=== PATIENT | female | born 2000 | race American Indian/Alaskan Native ===

== ENCOUNTER 2019-08-31 15:31 | Emergency (ER) | payer MEDICAID ==
--- NOTE | 2019-08-31 16:31 | Emergency Department Report ---
Blank Doc - Documentation Documentation: 18-year-old female that presents with urinary dysuria and flank pain. This initial assessment/diagnostic orders/clinical plan/treatment(s) is/are subject to change based on patient's health status, clinical progression and re- assessment by fellow clinical providers in the ED. Further treatment and workup at subsequent clinical providers discretion. Patient/guardians urged not to elope from the ED as their condition may be serious if not clinically assessed and managed. Initial orders include: 1- Patient sent to [facility] for further evaluation and treatment 2- UA
[2019-08-31] MEDS ORDERED: ONDANSETRON 4 MG/2 ML INJ IV ONE (17:16)
[2019-08-31] MEDS ORDERED: cefTRIAXone/NS 2 GM/100 ML 2 GM/100 ML BAG IV ONE (17:16)
[2019-08-31] MEDS ORDERED: HYDROcodone/ACETAMINOPHEN 5-325 MG TAB PO ONE (17:16)
[2019-08-31 17:18] LABS: Bilirubin,Urine NEG (Negative); Blood,Urine SM (Negative); Color,Urine Straw (Yellow); Mucus,Urine FEW /HPF; Protein,Urine <15 mg/dL mg/dL (Negative); Urobilinogen,Urine < 2.0 mg/dL (<2.0)
[2019-08-31 17:22] LABS: HCG Qualitative,Urine Negative (Negative)
[2019-08-31] MEDS ORDERED: diphenhydrAMINE 50 MG/ML VIAL ONE (18:21)
[2019-08-31] MEDS ORDERED: EPINEPHrine RACEMIC 2.25% 0.5ML NEBU IH ONE ×2 (18:21→18:24)
[2019-08-31] MEDS ORDERED: methylPREDNISolone Sod Succinate 125 MG/2 ML INJ ONE (18:21)
[2019-08-31] MEDS ORDERED: SODIUM CHLORIDE 0.9% 1000 ML 1,000 ML IV ONE (18:23)
[2019-08-31] MEDS ORDERED: AZITHROMYCIN 1 GM ORAL PWDR PACKET PO ONE (18:23)
--- NOTE | 2019-08-31 18:28 | Emergency Department Report ---
HPI - General Chief Complaint: Urogenital-Female Time Seen by Provider: 08/31/19 16:31 - HPI HPI: Room 45 The patient is a 18-year-old female presenting with chief complaint of right flank pain. Patient states she's had signs and symptoms of a UTI which included right flank pain 2 days. Patient states her urine has had a strong order for 2 days as well. Patient admits to dysuria but denies hematuria or vaginal discharge. Patient denies nausea vomiting. Patient admits to a subjective fever Location: [See above] Duration: [See above] Quality: [See above] Severity: [See above] Timing: [See above] Context: [See above] Modifying factors: [See above] Associated signs and symptoms: [see above] ED Past Medical Hx - Past Medical History Previous Medical History?: No - Surgical History Past Surgical History?: Yes Additional Surgical History: - Family History Family history: no significant - Social History Smoking Status: Never Smoker Substance Use Type: None (denies illicit drug use) - Medications Home Medications: Home Medications Medication Instructions Recorded Confirmed Last Taken Type HYDROcodone/APAP 5-325 [[place] 1 - 2 each PO Q6HR PRN #10 tablet 08/31/19 Unknown Rx 5/325] Ibuprofen [Motrin 800 MG tab] 800 mg PO Q8HR PRN #20 tablet 08/31/19 Unknown Rx levoFLOXacin [Levaquin TAB] 500 mg PO QDAY #10 tablet 08/31/19 Unknown Rx ED Review of Systems ROS: Stated complaint: POSS UTI Other details as noted in HPI Constitutional: fever (subjective) Eyes: denies: eye pain ENT: denies: throat pain Respiratory: no symptoms reported Cardiovascular: denies: chest pain Endocrine: no symptoms reported Gastrointestinal: denies: nausea, vomiting Genitourinary: dysuria. denies: hematuria, discharge Musculoskeletal: back pain Neurological: denies: headache Physical Exam - Physical Exam Vital Signs: Vital Signs 08/31/19 08/31/19 16:34 17:44 Temperature 99.4 F Pulse Rate 132 H Respiratory 18 18 Rate Blood Pressure 140/79 O2 Sat by Pulse 99 Oximetry Physical Exam: GENERAL: The patient is well-developed well-nourished female sitting on stretcher not appearing to be in acute distress. [] HEENT: Normocephalic. Atraumatic. Extraocular motions are intact. Patient has moist mucous membranes. NECK: Supple. Trachea midline CHEST/LUNGS: Faint expiratory wheezing. There is no respiratory distress noted. HEART/CARDIOVASCULAR: Regular. There is no tachycardia. There is no gallop rub or murmur. ABDOMEN: Abdomen is soft, nontender. Patient has normal bowel sounds. There is no abdominal distention. SKIN: There is no rash. There is no edema. There is no diaphoresis. NEURO: The patient is awake, alert, and oriented. The patient is cooperative. The patient has normal speech MUSCULOSKELETAL: There is right CVA tenderness. There is no evidence of acute injury. ED Course Vital Signs 08/31/19 08/31/19 16:34 17:44 Temperature 99.4 F Pulse Rate 132 H Respiratory 18 18 Rate Blood Pressure 140/79 O2 Sat by Pulse 99 Oximetry - Reevaluation(s) Reevaluation #1: 08/31/19 18:28 Informed by nursing the patient has began wheezing after administration of Rocephin ordered by previous physician. Patient to be given racemic epinephrine, Solu-Medrol and Benadryl ED Medical Decision Making - Radiology Data Radiology results: report reviewed (CT abdomen and pelvis), image reviewed (CT abdomen and pelvis) [facility] [address] [place] [address] Cat Scan Report Signed Patient: REGAN BABIN MR#: [id number] : 2000 Acct:[id number] Age/Sex: 18 / F ADM Date: 08/31/19 Loc: ED Attending Dr: Ordering Physician: JACQUELINE ALICEA MD Date of Service: 08/31/19 Procedure(s): CT abdomen pelvis wo con Accession Number(s): [id number] cc: JACQUELINE ALICEA MD CT abdomen pelvis wo con INDICATION: right flank pain, fever. TECHNIQUE: All CT scans at this location are performed using the following dose modulation technique: Automated exposure control. CONTRAST: None. COMPARISON: None available. CT ABDOMEN: Evaluation of the parenchymal organs demonstrates enlargement of the right kidney relative the left. A low density area at the lower pole laterally measuring 1.8 cm (series 2, image 80) is not a completely simple cyst. Mild inflammation is seen adjacent to the right kidney. The bowel is not dilated or thickened. CT PELVIS: Negative for distal ureteral stone, pelvic fluid collection or inflammation. The appendix is normal. IMPRESSION: 1. Swollen right kidney with adjacent inflammation. Infection and recently passed stone are the most likely etiologies. 2. Complex cyst versus abscess right kidney. Multiphase contrast-enhanced CT could be performed for more complete evaluation as clinically indicated. Signer Name: Biju Licona MD Signed: 08/31/2019 8:08 PM Workstation Name: [id number] Transcribed By: ES Dictated By: Biju Licona MD Electronically Authenticated By: Biju Licona MD Signed Date/Time: 08/31/192007 DD/ 02 TD/TT: - Differential Diagnosis UTI, renal colic, allergic reaction Critical care attestation.: If time is entered above; I have spent that time in minutes in the direct care of this critically ill patient, excluding procedure time. ED Disposition Clinical Impression: Right flank pain, Dysuria Disposition: - TO HOME OR SELFCARE Is pt being admited?: No Does the pt Need Aspirin: No Condition: Stable Instructions: Flank Pain (ED) Additional Instructions: Return to the emergency department should you develop worsening symptoms, inability to tolerate food or liquids, high fever or any other concerns Prescriptions: levoFLOXacin [Levaquin TAB] 500 mg PO QDAY #10 tablet Ibuprofen [Motrin 800 MG tab] 800 mg PO Q8HR PRN #20 tablet PRN Reason: Pain, Moderate (4-6) HYDROcodone/APAP 5-325 [[place] 5/325] 1 - 2 each PO Q6HR PRN #10 tablet PRN Reason: Pain Referrals: VAMSHI BETH MD [Staff Physician] - NAK[place] (Dr. Beth is a urologist. Please follow-up with him for further evaluation of your right kidney and possible cyst) SHITAL FARMER MD [Staff Physician] - 3-5 Days (Dr Farmer is a primary physician. Please follow-up with him to be established as a patient) Time of Disposition: 20:56
[2019-08-31] MEDS ORDERED: methylPREDNISolone Sod Succinate 125 MG/2 ML INJ IV ONE (18:34)
[2019-08-31] MEDS ORDERED: diphenhydrAMINE 50 MG/ML VIAL IV ONE (18:34)
--- NOTE | 2019-08-31 20:12 | Cat Scan Report ---
CT abdomen pelvis wo con INDICATION: right flank pain, fever. TECHNIQUE: All CT scans at this location are performed using the following dose modulation technique: Automated exposure control. CONTRAST: None. COMPARISON: None available. CT ABDOMEN: Evaluation of the parenchymal organs demonstrates enlargement of the right kidney relativ e the left. A low density area at the lower pole laterally measuring 1.8 cm (series 2, image 80) is n ot a completely simple cyst. Mild inflammation is seen adjacent to the right kidney. The bowel is not dilated or thickened. CT PELVIS: Negative for distal ureteral stone, pelvic fluid collection or inflammation. The appendix is normal. IMPRESSION: 1. Swollen right kidney with adjacent inflammation. Infection and recently passed stone are the most likely etiologies. 2. Complex cyst versus abscess right kidney. Multiphase contrast-enhanced CT could be performed for m ore complete evaluation as clinically indicated. Signer Name: Biju Licona MD Signed: 08/31/2019 8:08 PM Workstation Name: [id number]
[2019-08-31 21:11] VITALS: BP 118/88
== END 2019-08-31 21:16 | disposition home or self-care (01) ==
LOC: ED 15:31
DX: R10.9 Unspecified abdominal pain (principal); R30.0 Dysuria; Z98.890 Other specified postprocedural states; Z79.1 Long term (current) use of non-steroidal anti-inflammatories (NSAID); Z79.899 Other long term (current) drug therapy; Z91.013 Allergy to seafood; Z88.8 Allergy status to other drugs, medicaments and biological substances
CPT/HCPCS: 74176; 81001; 81025; 94640; 96365; 96375; 99284; J0696; J1200; J2405; J2930; J7030

== ENCOUNTER 2019-10-21 20:38 | Emergency (ER) | payer SELFPAY ==
[2019-10-21 20:58] VITALS: BP 129/87
--- NOTE | 2019-10-21 22:11 | Emergency Department Report ---
Blank Doc - Documentation Documentation: 18-year-old female that presents with right labia abscess. This initial assessment/diagnostic orders/clinical plan/treatment(s) is/are subject to change based on patient's health status, clinical progression and re- assessment by fellow clinical providers in the ED. Further treatment and workup at subsequent clinical providers discretion. Patient/guardians urged not to elope from the ED as their condition may be serious if not clinically assessed and managed. Initial orders include: 1- Patient sent to [facility] for further evaluation and treatment
[2019-10-21] MEDS: ONDANSETRON 4 MG ODT TAB PO ONE (23:57)
[2019-10-21] MEDS: SULFAMETHOXAZOLE/TRIMETHOPRIM 800/160MG DS TAB PO ONE (23:57)
[2019-10-21] MEDS: oxyCODONE /ACETAMINOPHEN 5-325MG TAB PO ONE (23:57)
[2019-10-21] MEDS: LIDOCAINE-MPF (1%) 10 MG/1 ML VIAL 5 ML INFILTRATI ONE (23:58)
--- NOTE | 2019-10-22 02:31 | Emergency Department Report ---
ED General Adult HPI - General Chief complaint: Urogenital-Female Stated complaint: VAGINAL PAIN Time Seen by Provider: 10/21/19 22:11 Source: patient Mode of arrival: Ambulatory Limitations: No Limitations - History of Present Illness Initial comments: Patient is a 18-year-old -Turkish female with no past medical history presents to the ED with complaint of acute onset persistent painful swollen mildly erythematous fluctuant maculopapular rash on right inguinal area but has spread to the right labia majora for the last 2 days. Patient states that in the last 12 hours the pain and swelling have worsened such that she is unable to walk because of pain. Patient denies fever, chills, nausea, vomiting, dizziness, headache, chest pain, shortness of breath, abdominal pain, vaginal discharge, dysuria, vaginal bleeding or diarrhea. MD Complaint: right inguinal swollen painful rash -: Sudden, days(s) (2) Location: genitals (right inguinal pain) Radiation: non-radiation Severity scale (0 -10): 10 Quality: aching, sharp Improves with: none Worsens with: movement Associated Symptoms: denies other symptoms, loss of appetite, rash (swollen painful erythematous maculopapular fluctuant rash on right inguinal area). denies: confusion, chest pain, cough, diaphoresis, fever/chills, headaches, malaise, nausea/vomiting - Related Data Previous Rx's Medication Instructions Recorded Last Taken Type HYDROcodone/APAP 5-325 [[place] 1 - 2 each PO Q6HR PRN #10 tablet 08/31/19 Unknown Rx 5/325] Ibuprofen [Motrin 800 MG tab] 800 mg PO Q8HR PRN #20 tablet 08/31/19 Unknown Rx levoFLOXacin [Levaquin TAB] 500 mg PO QDAY #10 tablet 08/31/19 Unknown Rx Acetaminophen/Codeine [Tylenol 1 tab PO Q6H PRN #12 tab 10/22/19 Unknown Rx /Codeine # 3 tab] Clindamycin [Clindamycin CAP] 300 mg PO Q8HR #60 capsule 10/22/19 Unknown Rx Ibuprofen [Motrin] 600 mg PO Q8H PRN #24 tablet 10/22/19 Unknown Rx Ondansetron [Zofran Odt] 4 mg PO Q6HR PRN #15 tab.rapdis 10/22/19 Unknown Rx Sulfamethoxazole/Trimethoprim 1 each PO Q12H #20 tablet 10/22/19 Unknown Rx [Bactrim DS TAB] Allergies Allergy/AdvReac Type Severity Reaction Status Date / Time ceftriaxone [From Rocephin] Allergy Shortness Verified 08/31/19 21:01 of Breath shellfish derived AdvReac Angioedema Verified 08/31/19 18:21 ED Review of Systems ROS: Stated complaint: VAGINAL PAIN Other details as noted in HPI Constitutional: denies: chills, fever Eyes: denies: eye pain, eye discharge, vision change ENT: denies: ear pain, throat pain Respiratory: denies: cough, shortness of breath, wheezing Cardiovascular: denies: chest pain, palpitations Endocrine: no symptoms reported Gastrointestinal: denies: abdominal pain, nausea, diarrhea Genitourinary: denies: urgency, dysuria, discharge Musculoskeletal: denies: back pain, joint swelling, arthralgia Skin: rash (swollen, painful erythematous fluctuant rash), change in color. denies: lesions Neurological: denies: headache, weakness, paresthesias Psychiatric: denies: anxiety, depression Hematological/Lymphatic: denies: easy bleeding, easy bruising ED Past Medical Hx - Past Medical History Hx Diabetes: Yes - Surgical History Additional Surgical History: - Social History Smoking Status: Current Every Day Smoker - Medications Home Medications: Home Medications Medication Instructions Recorded Confirmed Last Taken Type HYDROcodone/APAP 5-325 [[place] 1 - 2 each PO Q6HR PRN #10 tablet 08/31/19 Unknown Rx 5/325] Ibuprofen [Motrin 800 MG tab] 800 mg PO Q8HR PRN #20 tablet 08/31/19 Unknown Rx levoFLOXacin [Levaquin TAB] 500 mg PO QDAY #10 tablet 08/31/19 Unknown Rx Acetaminophen/Codeine [Tylenol 1 tab PO Q6H PRN #12 tab 10/22/19 Unknown Rx /Codeine # 3 tab] Clindamycin [Clindamycin CAP] 300 mg PO Q8HR #60 capsule 10/22/19 Unknown Rx Ibuprofen [Motrin] 600 mg PO Q8H PRN #24 tablet 10/22/19 Unknown Rx Ondansetron [Zofran Odt] 4 mg PO Q6HR PRN #15 tab.rapdis 10/22/19 Unknown Rx Sulfamethoxazole/Trimethoprim 1 each PO Q12H #20 tablet 10/22/19 Unknown Rx [Bactrim DS TAB] ED Physical Exam - General Limitations: No Limitations General appearance: alert, in no apparent distress - Head Head exam: Present: atraumatic, normocephalic, normal inspection - Eye Eye exam: Present: normal appearance, PERRL, EOMI Pupils: Present: normal accommodation - ENT ENT exam: Present: normal exam, normal orophraynx, mucous membranes moist, TM's normal bilaterally, normal external ear exam - Neck Neck exam: Present: normal inspection, full ROM. Absent: tenderness, lymphadenopathy - Respiratory Respiratory exam: Present: normal lung sounds bilaterally. Absent: respiratory distress, wheezes, chest wall tenderness, accessory muscle use, decreased breath sounds, prolonged expiratory - Cardiovascular Cardiovascular Exam: Present: regular rate, normal rhythm, normal heart sounds. Absent: systolic murmur, diastolic murmur, rubs, gallop - GI/Abdominal GI/Abdominal exam: Present: soft, normal bowel sounds. Absent: tenderness, guarding - External exam: Present: other (erythematous fluctuant severely tender maculopapular rash on right labium majora) Bi-manual exam: Present: other (Female RN present as special delivery messenger;) - Extremities Exam Extremities exam: Present: normal inspection, full ROM, normal capillary refill - Back Exam Back exam: Present: normal inspection, full ROM. Absent: tenderness, muscle spasm, paraspinal tenderness, vertebral tenderness - Neurological Exam Neurological exam: Present: alert, oriented X3, CN II-XII intact, normal gait, reflexes normal - Psychiatric Psychiatric exam: Present: normal affect, normal mood - Skin Skin exam: Present: warm, dry, intact, normal color, rash (Swollen erythematous maculopapular fluctuant rash on right labium majora), erythema ED Course Vital Signs 10/21/19 10/22/19 20:54 03:00 Temperature 98.3 F Pulse Rate 109 H 93 H Respiratory 18 17 Rate Blood Pressure 129/87 O2 Sat by Pulse 100 98 Oximetry - I & D Right Groin Type of Procedure: Simple Site: RIGHT INGUINAL AND LABIUM MAJORA Blade Size: 11 I & D Procedure: betadine prep, sterile drapes applied, sterile dressing applied, gauze wick placed Progress: Site was prepped by cleaning with normal saline and Betadine. Local anesthetic lidocaine 1% solution was injected around the site and the rash was incised and drained per protocol. Copious amounts of purulent discharge drained from the site. The wound was then cleaned thoroughly and debrided with normal saline and flocculation's broken with a hemostat. The wound was then packed with iodoform gauze and the area dressed appropriately with 4 x 4 gauze and Tegaderm. Patient tolerated the procedure well. Patient was then discharged home on pain medications and oral antibiotics and advised to follow-up with her primary care physician in 7 to 10 days for reevaluation or return to the ED immediately if symptoms get worse. Patient was otherwise advised to return to the ED in 2 days for wound recheck and packing removal. ED Medical Decision Making - Medical Decision Making This is a 18-year-old female who presented to the ED with painful swollen erythematous maculopapular fluctuant rash in right inguinal area for the last 2 days. In the ED, patient is alert and oriented x3 and is not in any distress, tachycardic in triage and appears to be in pain. Patient was treated for pain a nd also given initial oral antibiotics. The swollen painful rash was cleaned and I&D procedure performed. Patient tolerated the procedure well and was discharged home on pain medications and oral antibiotics and advised return to the ED in 2 days for wound recheck and packing removal. Patient was otherwise advised to follow-up with her primary care physician in 7 to 10 days for reevaluation or return to the ED immediately if symptoms get worse. - Differential Diagnosis CELLULITIS; FOLLICULITIS; CUTANEOUS ABSCESS Critical care attestation.: If time is entered above; I have spent that time in minutes in the direct care of this critically ill patient, excluding procedure time. ED Disposition Clinical Impression: Acute folliculitis, Cellulitis of labia majora Cutaneous abscess Qualifiers: Site of cutaneous abscess: trunk Site of cutaneous abscess of trunk: groin Qualified Code(s): L02.214 - Cutaneous abscess of groin Disposition: DC-01 TO HOME OR SELFCARE Is pt being admited?: No Does the pt Need Aspirin: No Condition: Stable Instructions: Cellulitis (ED), Folliculitis (ED), Abscess (ED) Additional Instructions: Take medication with food, drink plenty of fluids and follow-up with your primary care physician in 7 to 10 days for reevaluation. Return to the ED in 2 days for wound recheck and packing removal. Otherwise return to the ED immediately if symptoms get worse. Prescriptions: Sulfamethoxazole/Trimethoprim [Bactrim DS TAB] 1 each PO Q12H #20 tablet Clindamycin [Clindamycin CAP] 300 mg PO Q8HR #60 capsule Ibuprofen [Motrin] 600 mg PO Q8H PRN #24 tablet PRN Reason: Pain Acetaminophen/Codeine [Tylenol /Codeine # 3 tab] 1 tab PO Q6H PRN #12 tab PRN Reason: Pain , Severe (7-10) Ondansetron [Zofran Odt] 4 mg PO Q6HR PRN #15 tab.rapdis PRN Reason: Nausea Referrals: [facility] [Outside] - 3-5 Days Forms: Work/School Release Form(ED) Time of Disposition: 02:34 Print Language: KOREAN
== END 2019-10-22 03:00 | disposition home or self-care (01) ==
LOC: ED 20:38
DX: L02.214 Cutaneous abscess of groin (principal); L73.8 Other specified follicular disorders; N76.2 Acute vulvitis; E11.9 Type 2 diabetes mellitus without complications; F17.200 Nicotine dependence, unspecified, uncomplicated; Z91.013 Allergy to seafood; Z88.8 Allergy status to other drugs, medicaments and biological substances; Z79.1 Long term (current) use of non-steroidal anti-inflammatories (NSAID); Z79.899 Other long term (current) drug therapy
CPT/HCPCS: Q0162

== ENCOUNTER 2019-10-24 15:42 | Emergency (ER) | payer SELFPAY ==
[2019-10-24] MEDS ORDERED: HYDROcodone/ACETAMINOPHEN 5-325 MG TAB PO ONE (17:54)
[2019-10-24] MEDS ORDERED: IBUPROFEN 800 MG TAB PO ONE (17:54)
--- NOTE | 2019-10-24 17:58 | Emergency Department Report ---
Chief Complaint: Urogenital-Female Stated Complaint: CHECK UP FOR ABSCESS Time Seen by Provider: 10/24/19 17:53 - HPI History of Present Illness: 18 y/o f p/w follow up after labial abscess I&D. Pt had I&D 3 days ago and was instructed to return. no fever but admits to brown/yellow. 8/10 pain. - Exam Vital Signs: T 98.5, 134/88 P 100, spo2 100% MSE screening note: Focused history and physical exam performed. Due to findings the following was ordered: norco, ibuprofen ED Disposition for MSE Condition: Stable
[2019-10-24 20:36] VITALS: BP 134/88
--- NOTE | 2019-10-24 20:36 | Emergency Department Report ---
ED Recheck HPI - General Chief Complaint: Urogenital-Female Stated Complaint: CHECK UP FOR ABSCESS Time Seen by Provider: 10/24/19 17:53 Source: patient Mode of arrival: Ambulatory Limitations: No Limitations - History of Present Illness Initial Comments: 18 y/o f p/w follow up after labial abscess I&D. Pt had I&D 3 days ago and was instructed to return. no fever but admits to brown/yellow. 8/10 pain. Complaint: wound re-check Onset/Timin -: days(s) Returns Today for: wound recheck Symptoms Since Prior Visit: no new symptoms Context: planned re-check Associated Symptoms: none - Related Data Previous Rx's Medication Instructions Recorded Last Taken Type HYDROcodone/APAP 5-325 [[place] 1 - 2 each PO Q6HR PRN #10 tablet 08/31/19 Unknown Rx 5/325] Ibuprofen [Motrin 800 MG tab] 800 mg PO Q8HR PRN #20 tablet 08/31/19 Unknown Rx levoFLOXacin [Levaquin TAB] 500 mg PO QDAY #10 tablet 08/31/19 Unknown Rx Acetaminophen/Codeine [Tylenol 1 tab PO Q6H PRN #12 tab 10/22/19 Unknown Rx /Codeine # 3 tab] Clindamycin [Clindamycin CAP] 300 mg PO Q8HR #60 capsule 10/22/19 Unknown Rx Ibuprofen [Motrin] 600 mg PO Q8H PRN #24 tablet 10/22/19 Unknown Rx Ondansetron [Zofran Odt] 4 mg PO Q6HR PRN #15 tab.rapdis 10/22/19 Unknown Rx Sulfamethoxazole/Trimethoprim 1 each PO Q12H #20 tablet 10/22/19 Unknown Rx [Bactrim DS TAB] Allergies Allergy/AdvReac Type Severity Reaction Status Date / Time ceftriaxone [From Rocephin] Allergy Shortness Verified 08/31/19 21:01 of Breath shellfish derived AdvReac Angioedema Verified 08/31/19 18:21 ED Review of Systems ROS: Stated complaint: CHECK UP FOR ABSCESS Other details as noted in HPI Comment: All other systems reviewed and negative ED Past Medical Hx - Past Medical History Previous Medical History?: Yes Hx Diabetes: Yes Additional medical history: I&D abscess - Surgical History Past Surgical History?: Yes Additional Surgical History: - Social History Smoking Status: Current Every Day Smoker - Medications Home Medications: Home Medications Medication Instructions Recorded Confirmed Last Taken Type HYDROcodone/APAP 5-325 [[place] 1 - 2 each PO Q6HR PRN #10 tablet 08/31/19 Unknown Rx 5/325] Ibuprofen [Motrin 800 MG tab] 800 mg PO Q8HR PRN #20 tablet 08/31/19 Unknown Rx levoFLOXacin [Levaquin TAB] 500 mg PO QDAY #10 tablet 08/31/19 Unknown Rx Acetaminophen/Codeine [Tylenol 1 tab PO Q6H PRN #12 tab 10/22/19 Unknown Rx /Codeine # 3 tab] Clindamycin [Clindamycin CAP] 300 mg PO Q8HR #60 capsule 10/22/19 Unknown Rx Ibuprofen [Motrin] 600 mg PO Q8H PRN #24 tablet 10/22/19 Unknown Rx Ondansetron [Zofran Odt] 4 mg PO Q6HR PRN #15 tab.rapdis 10/22/19 Unknown Rx Sulfamethoxazole/Trimethoprim 1 each PO Q12H #20 tablet 10/22/19 Unknown Rx [Bactrim DS TAB] ED Physical Exam - General Limitations: No Limitations General appearance: alert, in no apparent distress - Head Head exam: Present: atraumatic, normocephalic - Eye Eye exam: Present: normal appearance - ENT ENT exam: Present: mucous membranes moist - Neurological Exam Neurological exam: Present: alert, oriented X3, normal gait - Psychiatric Psychiatric exam: Present: normal affect, normal mood - Expanded Skin Exam Expanded Type of lesion: Present: abscess Distribution of rash: genitals Description of rash: Present: tenderness, swelling, other (Packing intact) ED Recheck MDM - Core Measures Measure Exclusions: not indicated - Differential Diagnosis Cutananeous Abscess reche - Medical Decision Making 18 y/o f p/w follow up after labial abscess I&D. Pt had I&D 3 days ago and was instructed to return. no fever but admits to brown/yellow. 8/10 pain. Critical care attestation.: If time is entered above; I have spent that time in minutes in the direct care of this critically ill patient, excluding procedure time. ED Disposition Clinical Impression: Cellulitis of labia majora, Cutaneous abscess, Acute folliculitis, Encounter for wound re-check Disposition: TO HOME OR SELFCARE Is pt being admited?: No Does the pt Need Aspirin: No Condition: Stable Additional Instructions: Continue taking antibiotics as prescribed. You can take [id number] ibuprofen take 3 tablets which you equal up to 600 mg every 6-8 hours as needed for pain management. Referrals: PRIMARY CARE, [Primary Care Provider] - 3-5 Days Forms: Work/School Release Form(ED)
== END 2019-10-24 20:45 | disposition home or self-care (01) ==
LOC: ED 15:42
DX: N76.2 Acute vulvitis (principal); L73.8 Other specified follicular disorders; N76.4 Abscess of vulva; F17.200 Nicotine dependence, unspecified, uncomplicated; Z91.013 Allergy to seafood; Z88.8 Allergy status to other drugs, medicaments and biological substances; Z98.890 Other specified postprocedural states; Z79.899 Other long term (current) drug therapy
CPT/HCPCS: 99282